=== PATIENT | female | born 1975 | race Hispanic/Latino ===

== ENCOUNTER → 2018-03-28 | Day surgery (SDC) | payer BC ==
[~2018-03-28] MED LIST: ASPIR 8181 MG PO; BUSPIRONE HCL5 MG PO; CYMBALTA30 MG PO; DICYCLOMINE HCL10 MG PO; DOCUSATE SODIU100 MG PO; FENTANYL CITRATE/PF 100MCG/2 ML INJ ONE; FETZIMA PO; GABAPEN; GABAPENTIN PO; HYDROXYCHLOROQ200 MG PO; HYDROXYZINE HCL25 MG PO; LINZESS PO; LORAZEPAM INJ 2 MG/ML VIAL INJ ONE; LORAZEPAM INJ 2 MG/ML VIAL IV ONE; LYRICA75 MG PO; MIDAZOLAM HCL 2 MG/2 ML VIAL ONE; MIRTAZAPINE15 MG PO; PANTOPRAZOLE SO40 MG PO; PROPOFOL IV EMULSION 10 MG/ML 50 ML VIAL ONE; TRAZODONE HCL50 MG PO; TRULANCE PO; TURMERIC1 GM PO; TYLENOL PO; VENLAFAXINE HCL75 MG PO; VIT D3 PO; [UNRECOGNIZED DRUG - OTHER] PO
--- OUTSIDE RECORDS SUMMARY | 2018-03-28 11:48 | XMS REPORT | Clinical Summary ---
Author Author [facility]esh [facility] Organization [facility] Address Unknown Phone Unavailable Care Team Providers Care Speed Belt Sander Name Role Phone Asked, Pcp PCP Unavailable Allergies Active Allergy Reactions Severity Noted Date Comments Iodine 08/18/2016 Metoclopramide 08/18/2016 Shellfish Derived 08/18/2016 Current Medications Prescription Sig. Disp. Refills Start End Date Status Date famotidine (PEPCID) 20 MG TK 1 T PO Q 12 H 0 08/12/20 Active tablet 16 levETIRAcetam (KEPPRA) TK 1 T PO BID 0 08/02/20 Active 500 MG tablet 16 traZODone (DESYREL) 50 MG Take 2 tablets by mouth 0 07/07/20 Active tablet nightly. 16 linaclotide (LINZESS) 290 Take 290 mcg by mouth Active mcg capsule every other day. gabapentin (NEURONTIN) Take 300 mg by mouth 3 Active 300 MG capsule (three) times a day. pantoprazole (PROTONIX) Take 40 mg by mouth Active 40 MG EC tablet daily. ibuprofen-famotidine Take 1 tablet by mouth Active 800-26.6 mg tablet daily as needed. venlafaxine XR Take 150 mg by mouth Active (EFFEXOR-XR) 150 MG 24 hr daily. capsule dicyclomine (BENTYL) 10 Take 10 mg by mouth 2 Active MG capsule (two) times a day. brexpiprazole 2 mg tablet Take 2 mg by mouth daily. Active topiramate (TOPAMAX) 25 Take 25 mg by mouth 2 Active MG tablet (two) times a day. Active Problems Problem Noted Date Fibromyalgia 09/02/2016 Elevated antinuclear antibody (DIMAS) level 09/02/2016 Syncope and collapse 09/02/2016 Weakness generalized 09/02/2016 Vitamin D deficiency 09/02/2016 Slurred speech 09/02/2016 Paresthesia 09/02/2016 Social History Tobacco Use Types Packs/Day Years Used Date Never Smoker Smokeless Tobacco: Never Used Alcohol Use Drinks/Week oz/Week Comments No Sex Assigned at Date Recorded Not on file Last Filed Vital Signs Not on file Plan of Treatment Health Maintenance Due Date Last Done Comments CERVICAL CANCER SCREENING 1998 INFLUENZA VACCINE 05/23/2018 Results Not on fileafter 03/27/2017 Insurance Payer Benefit Subscriber ID Type Phone Address Plan / Group BCBS BCBS xxxxxxxxxxxx PPO CHOICE PPO/INES NIEVES PPO GARETT MONTESINOS Third Self 1975 Home: [id number] [facility] [place] [address] Liability
--- NOTE | 2018-03-28 15:28 | Operative Report ---
DATE OF PROCEDURE: March 28, 2018 REFERRING PHYSICIAN: Dr. Cherelle Cornelius. PROCEDURE PERFORMED: Esophagogastroduodenoscopy with biopsies and esophageal dilatation. INDICATIONS FOR PROCEDURE: Dysphagia to solids. Heartburn indigestion. MEDICATION: Patient was done under MAC. Please see anesthesiologist's note. PROCEDURE: With the patient in the left lateral decubitus position, the flexible fiberoptic Olympus gastroscope was introduced into the esophagus under direct visualization without any difficulty. There was some patchy erythema noted in the distal esophagus. A mild stricture was noted at the GE junction that was dilated to a size 52-Arabic Tavares. The scope was then advanced with ease into the stomach, and some hyperplastic-appearing polyps were noted in the body. Some were partially excised with the cold biopsy forceps. The mucosa overlying the antrum revealed some patchy intense erythema and moderate edema, and biopsies were obtained and sent to stain for H. pylori. Pylorus appeared to be of normal contour and shape, was intubated with ease, and the scope was advanced all the way to the 2nd portion of the duodenum. The scope was then withdrawn slowly. Mucosa overlying the proximal 2nd portion and the duodenal bulb appeared to be within normal limits. The scope was then withdrawn back into the stomach and retroflexed, and the mucosa overlying the fundus and the cardia appeared to be within normal limits. The scope was then straightened out. The stomach was decompressed. The scope was subsequently withdrawn. Patient tolerated the procedure well. IMPRESSION: 1. Distal esophagitis. 2. Esophageal stricture at gastroesophageal junction dilated to size 52-Arabic Tavares. 3. Gastritis biopsied. Biopsies sent to stain for H. pylori. 4. Gastric polyps, body, some partially excised with the cold biopsy forceps. PLAN: Follow up histology. Continue Protonix 40 mg 1 p.o. a.c. b.i.d. Add Carafate 2 grams p.o. a.c. b.i.d. Job#: [id number] EV cc:CHERELLE CORNELIUS MD
== END | disposition home or self-care (01) ==
LOC: OR 11:45
PROVIDERS: ATTEND Internal Medicine Gastroenterology
DX: K22.2 Esophageal obstruction (principal); K31.7 Polyp of stomach and duodenum; K29.70 Gastritis, unspecified, without bleeding; K20.9 Esophagitis, unspecified; K59.00 Constipation, unspecified; K58.9 Irritable bowel syndrome, unspecified; M33.20 Polymyositis, organ involvement unspecified; M34.9 Systemic sclerosis, unspecified; M32.9 Systemic lupus erythematosus, unspecified; R03.0 Elevated blood-pressure reading, without diagnosis of hypertension; G62.9 Polyneuropathy, unspecified; M79.7 Fibromyalgia; R06.02 Shortness of breath; F41.9 Anxiety disorder, unspecified; F32.9 Major depressive disorder, single episode, unspecified; Z88.8 Allergy status to other drugs, medicaments and biological substances; Z91.041 Radiographic dye allergy status; Z79.82 Long term (current) use of aspirin; Z68.38 Body mass index [BMI] 38.0-38.9, adult
CPT/HCPCS: 43239; 43450; J2060; J2250

== ENCOUNTER → 2019-01-31 | Day surgery (SDC) | payer BC ==
[~2019-01-31] MED LIST changes: +BUPROPION XL150 MG PO; +DOXEPIN HCL25 MG PO; +HYOSCYAMINE SULFATE 0.5 MG/ML INJ ONE; -LORAZEPAM INJ 2 MG/ML VIAL INJ ONE; -LORAZEPAM INJ 2 MG/ML VIAL IV ONE; +METOPROLOL SUCC25 MG PO; +MILK THISTLE500 MG PO; +SUCRALFATE1 GM PO; +VIT B12 PO; +VIT E PO
--- OUTSIDE RECORDS SUMMARY | 2019-01-31 10:31 | XMS REPORT ---
Author Author [facility] Address Unknown Phone Unavailable Care Team Providers Care Squilgeer Name Role Phone Unavailable Unavailable Problems This patient has no known problems. Allergies, Adverse Reactions, Alerts This patient has no known allergies or adverse reactions. Medications This patient has no known medications.
--- OUTSIDE RECORDS SUMMARY | 2019-01-31 10:31 | XMS REPORT | Clinical Summary ---
Author Author Yogesh [facility] Organization [facility] Address Unknown Phone Unavailable Care Team Providers Care Truck Loader And Unloader Name Role Phone Asked, No Pcp PCP Unavailable Allergies Comments Active Allergy Reactions Severity Noted Date Iodine 08/18/2016 Metoclopramide 08/18/2016 Shellfish Derived 08/18/2016 Medications End Date Status Medication Sig Dispensed Refills Start Date Active famotidine (PEPCID) 20 MG TK 1 T PO Q 0 tablet 12 H 6 Active levETIRAcetam (KEPPRA) TK 1 T PO BID 0 500 MG tablet 6 Active traZODone (DESYREL) 50 MG Take 2 0 tablet tablets by 6 mouth nightly. Active linaclotide (LINZESS) 290 Take 290 mcg 0 mcg capsule by mouth every other day. Active gabapentin (NEURONTIN) Take 300 mg 0 300 MG capsule by mouth 3 (three) times a day. Active pantoprazole (PROTONIX) Take 40 mg by 0 40 MG EC tablet mouth daily. Active ibuprofen-famotidine Take 1 tablet 0 800-26.6 mg tablet by mouth daily as needed. Active venlafaxine XR Take 150 mg 0 (EFFEXOR-XR) 150 MG 24 hr by mouth capsule daily. Active dicyclomine (BENTYL) 10 Take 10 mg by 0 MG capsule mouth 2 (two) times a day. Active brexpiprazole 2 mg tablet Take 2 mg by 0 mouth daily. Active topiramate (TOPAMAX) 25 Take 25 mg by 0 MG tablet mouth 2 (two) times a day. Active Problems Problem Noted Date Fibromyalgia 09/02/2016 Elevated antinuclear antibody (DIMAS) level 09/02/2016 Syncope and collapse 09/02/2016 Weakness generalized 09/02/2016 Vitamin D deficiency 09/02/2016 Slurred speech 09/02/2016 Paresthesia 09/02/2016 Social History Date Tobacco Use Types Packs/Day Years Used Never Smoker Smokeless Tobacco: Never Used Alcohol Use Drinks/Week oz/Week Comments No Sex Assigned at Date Recorded Not on file Industry Job Start Date Occupation Not on file Not on file Not on file Travel End Travel History Travel Start No recent travel history available. Last Filed Vital Signs Not on file Plan of Treatment Health Maintenance Due Date Last Done Comments CERVICAL CANCER SCREENING 1998 INFLUENZA VACCINE 05/23/2019 Results Not on fileafter 01/30/2018 Insurance Payer Benefit Subscriber ID Type Phone Address Plan / Group BCBS BCBS xxxxxxxxxxxx PPO CHOICE PPO/INES NIEVES PPO Liability Advance Directives Patient has advance care planning documents on file. For more information, salvador rob contact: Yogesh Quiles [address] [place] [address]
[2019-01-31 14:35] VITALS: BP 120/75
--- NOTE | 2019-01-31 14:52 | Operative Report ---
DATE OF PROCEDURE: 01/31/2019 SURGEON: Javi Deleon MD PROCEDURES: Esophagogastroduodenoscopy with biopsies and esophageal dilatation and colonoscopy. INDICATIONS FOR EGD: Dysphagia to solids. INDICATIONS FOR COLONOSCOPY: Surveillance colonoscopy, personal history of colon polyp. Constipation. MEDICATIONS: The patient was done under MAC, please see anesthesiologist's note. PROCEDURE IN DETAIL: With the patient in left lateral decubitus position, flexible fiberoptic Olympus gastroscope was introduced into the esophagus under direct visualization without any difficulty. There was some patchy erythema noted in distal esophagus. A mild stricture was noted at the GE junction, it was dilated to size 52-Persian Tavares. The scope was then advanced with ease into the stomach. Mucosa overlying the antrum and the body revealed some patchy erythema and [id number] edema and biopsies were obtained and sent to stain for H pylori. The pylorus was of normal contour and shape, it was intubated with ease and the scope was advanced all the way to the second portion of the duodenum. Biopsies were obtained from the proximal second portion and the duodenal bulb to rule out sprue. The scope was then withdrawn back into the stomach and retroflexed and mucosa overlying the fundus and cardia appeared to be within normal limits. The scope was then straightened out, it was subsequently withdrawn. The patient tolerated the procedure well. IMPRESSION: 1. Mild distal esophagitis. 2. Esophagus dilated to size 52-Persian Tavares. 3. Gastritis, biopsied. Biopsies sent to stain for Helicobacter pylori. 4. Rule out sprue. PLAN: Follow up histology. Initiate Protonix 40 mg one p.o. a.c. b.i.d. PROCEDURE IN DETAIL: The patient was then turned around and after adequate lubrication of the anal canal, a flexible fiberoptic Olympus colonoscope was inserted into the rectum with ease and advanced all the way to the cecum. The scope was then withdrawn slowly and mucosa overlying the cecum, ascending, transverse, descending, and sigmoid grossly appeared to be within normal limits other than for diverticular disease. The rectum appeared to be within normal limits. The scope was then retroflexed into the distal rectum and small internal hemorrhoids were noted, none of which was actively bleeding. The scope was then straightened out, it was subsequently withdrawn. The patient tolerated the procedure well. IMPRESSION: 1. Diverticulosis. 2. Internal hemorrhoids, none actively bleeding. PLAN: Initiate high-fiber, low-fat diet. Initiate high-fiber supplement. The patient might benefit from a colonoscopy in 5 years. MD MEIR Ferreira/ADIN /[id number] cc: Cherelle Holley MD
== END | disposition home or self-care (01) ==
LOC: OR 10:29
PROVIDERS: ATTEND Internal Medicine Gastroenterology
DX: K22.2 Esophageal obstruction (principal); K29.50 Unspecified chronic gastritis without bleeding; K20.9 Esophagitis, unspecified; K21.9 Gastro-esophageal reflux disease without esophagitis; K58.9 Irritable bowel syndrome, unspecified; K57.30 Diverticulosis of large intestine without perforation or abscess without bleeding; K64.8 Other hemorrhoids; M32.9 Systemic lupus erythematosus, unspecified; M79.7 Fibromyalgia; F32.9 Major depressive disorder, single episode, unspecified; F41.9 Anxiety disorder, unspecified; Z88.8 Allergy status to other drugs, medicaments and biological substances; Z91.041 Radiographic dye allergy status; Z01.810 Encounter for preprocedural cardiovascular examination; Z79.82 Long term (current) use of aspirin
CPT/HCPCS: 43239; 43450; 45378; 93005; J1980; J2250; J2704

== ENCOUNTER → 2019-06-06 | Day surgery (SDC) | payer BC ==
[2019-06-04 11:07] LABS: BASOPHILS % 0.5 % (0.0-1.0); EOSINOPHILS # (AUTO) 0.1 (0.0-0.4); EOSINOPHILS % 1.7 % (0.0-6.0); HEMATOCRIT 41.7 % (34.2-44.1); HEMOGLOBIN 14.2 g/dL (12.0-16.0); LYMPHOCYTES # (AUTO) 2.5 (1.0-3.2); LYMPHOCYTES % 38.7 % (18.0-39.1); MEAN CORPUSCULAR HEMOGLOBIN 30.7 pg (28-32); MEAN CORPUSCULAR HGB CONC 34.1 g/dL (31-35); MEAN CORPUSCULAR VOLUME 90.1 fL (81-99); MONOCYTES # (AUTO) 0.4 (0.2-0.8); MONOCYTES % 6.4 % (4.4-11.3); NEUTROPHILS # (AUTO) 3.4 (2.1-6.9); NEUTROPHILS % 52.4 % (38.7-80.0); PLATELET COUNT 234 x10e3/uL (140-360); RED BLOOD COUNT 4.63 x10e6/uL (3.6-5.1); RED CELL DISTRIBUTION WIDTH 11.9 % (11.7-14.4)
[2019-06-04 11:17] LABS: ALANINE AMINOTRANSFERASE 25 IU/L (0-55); ALBUMIN 4.3 g/dL (3.5-5.0); ALBUMIN/GLOBULIN RATIO 1.3 (0.8-2.0); ALKALINE PHOSPHATASE 61 IU/L (40-150); ANION GAP 15.5 mmol/L (8-16); BLOOD UREA NITROGEN 10 mg/dL (7-26); BUN/CREATININE RATIO 12 (6-25); CALCIUM 9.6 mg/dL (8.4-10.2); CARBON DIOXIDE 25 mmol/L (22-29); CHLORIDE 102 mmol/L (98-107); CREATININE, SERUM 0.81 mg/dL (0.57-1.11); EST GLOMERULAR FILTRATION RATE > 60 ML/MIN (60-); GLUCOSE 93 mg/dL (74-118); POTASSIUM 4.5 mmol/L (3.5-5.1); SODIUM 138 mmol/L (136-145)
--- NOTE | 2019-06-04 12:05 | Diagnostic Imaging Report ---
EXAMINATION: CHEST 2 VIEWS INDICATION: Pre-operative COMPARISON: None FINDINGS: LINES/TUBES:None LUNGS:The lungs are well-inflated. No focal consolidation or pulmonary edema. PLEURA:No pleural effusion or pneumothorax. MEDIASTINUM:The cardiomediastinal silhouette appears normal in size and shape. BONES/SOFT TISSUES:No acute osseous injury. ABDOMEN:No free air under the diaphragm. IMPRESSION: No focal pneumonia or pulmonary edema. Signed by: Kuldeep Jenkins MD on 06/04/2019 12:02 PM
[~2019-06-06] MED LIST changes: +ACETAMINOPHEN 1000 MG/100 ML IV ONE; +BUPIVACAINE 0.25%/EPI 30ML SDV INJ ONE; +BUPIVACAINE/EPINEPHRINE 0.25% 10 ML SDV INJ ONE; +CEFAZOLIN SOD 1 GM/NS 50ML 100 ML IV ONE; +DEXAMETHASONE SOD PHOS INJ 4 MG/ML VIAL ONE; +ESTROGENS CONJUGATED VAGINAL CR 45 GM TUBE PV ONE; -HYOSCYAMINE SULFATE 0.5 MG/ML INJ ONE; +LIDOCAINE HCL 2% LOCAL INJ 5 ML SDV VIAL INJ ONE; +LORAZEPAM INJ 2 MG/ML VIAL ONE; +ONDANSETRON HCL INJ 2MG/ML 2ML 2 MG/ML VIAL ONE; +PROPOFOL IV EMULSION 10 MG/ML 20 ML VIAL ONE; -PROPOFOL IV EMULSION 10 MG/ML 50 ML VIAL ONE; +SEVOFLURANE INHAL SOLN 250 ML PEN BTL ONE
--- OUTSIDE RECORDS SUMMARY | 2019-06-06 09:28 | XMS REPORT | Clinical Summary ---
Author Author Yogesh [facility] Organization [facility] Address Unknown Phone Unavailable Care Team Providers Care Counterintelligence/Humint Specialist Name Role Phone Asked, No Pcp PCP [...] Health Maintenance Due Date Last Done Comments INFLUENZA VACCINE 05/23/2019 Results Not on fileafter 06/05/2018 Insurance Type Payer Benefit Subscriber ID Effective Phone Address Plan / Dates Group PPO BCBS BCBS xxxxxxxxxxxx 2008-P CHOICE resent PPO/INES NIEVES PPO Taylor Rubalcava Third Self 1975 [id number] [facility] [employer] [place] (Home) [place] [id number] Liability Advance Directives Patient has advance care planning documents on file. For more information, salvador rob contact: Yogesh Quiles [address] [place] [address]
--- NOTE | 2019-06-06 15:33 | Operative Report ---
PREOPERATIVE DIAGNOSIS: Genuine stress incontinence. POSTOPERATIVE DIAGNOSIS: Genuine stress incontinence. PROCEDURE: Transobturator tape. COMPLICATIONS: None. ESTIMATED BLOOD LOSS: 20 mL. PROCEDURE IN DETAIL: The patient was taken to the OR. General anesthesia was induced. She was prepped and draped in a normal sterile fashion, placed in dorsal lithotomy position with hyperflexion of the hip joints. Foss catheter was placed inside the bladder and UVJ junction was marked with an Allis clamp. A weighted speculum was placed inside the vagina and another Allis clamp was placed at the external urethral meatus. The subvaginal tissue anteriorly was between two Allis clamps, was injected with Marcaine with epinephrine 0.25%. Vaginal skin incision was made with a scalpel at the level of the mid urethra and subvaginal tissue dissected off the urethra using Metzenbaum scissors using push-spread technique towards the inferior pubic ramus. Entry points were made on each side of the pelvis at the level of the clitoris and with the scalpel the Obtryx trocar was then inserted inside the entry points felt with the finger and medial to the inferior pubic ramus and guided to the outside of the wound where the TOT tape was threaded on the trocar and the trocar was withdrawn. The same was repeated on the other side and the tape was laid down flat at the level of the mid urethra. Cystoscopy showed normal bladder and urethra. The TOT cover was removed and the vagina was closed. Vaginal skin was approximated with Vicryl 2-0. The excess TOT tape was excised at the entry points and the skin was approximated using Dermabond. The patient tolerated the procedure well. Lap, sponge and needle count was correct x2 at the end of the procedure. Elva Green MD DD/ADIN /[id number]
[2019-06-06 16:20] VITALS: BP 114/71
== END | disposition home or self-care (01) ==
LOC: OR 09:25
PROVIDERS: ATTEND Obstetrics & Gynecology
DX: N39.3 Stress incontinence (female) (male) (principal); M32.9 Systemic lupus erythematosus, unspecified; M79.7 Fibromyalgia; I45.10 Unspecified right bundle-branch block; K21.9 Gastro-esophageal reflux disease without esophagitis; K28.9 Gastrojejunal ulcer, unspecified as acute or chronic, without hemorrhage or perforation; R42 Dizziness and giddiness; F41.0 Panic disorder [episodic paroxysmal anxiety]; Z88.8 Allergy status to other drugs, medicaments and biological substances; Z91.041 Radiographic dye allergy status; Z79.82 Long term (current) use of aspirin
CPT/HCPCS: 36415; 57288; 71046; 80053; 84702; 85025; 93005; C1781; J0131; J0690; J1100; J2001; J2060; J2250; J2405; J2704; J3010

== ENCOUNTER → 2021-02-06 | Day surgery (SDC) | payer BC ==
[2021-02-03 10:01] LABS: BASOPHILS % 0.2 % (0.0-1.0); EOSINOPHILS % 0.6 % (0.0-6.0); HEMOGLOBIN 12.4 g/dL (12.0-16.0); LYMPHOCYTES # (AUTO) 2.4 (1.0-3.2); LYMPHOCYTES % 45.2 % (18.0-39.1); MEAN CORPUSCULAR HEMOGLOBIN 30.8 pg (28-32); MEAN CORPUSCULAR HGB CONC 33.5 g/dL (31-35); MONOCYTES # (AUTO) 0.4 (0.2-0.8); MONOCYTES % 7.3 % (4.4-11.3); NEUTROPHILS # (AUTO) 2.5 (2.1-6.9); NEUTROPHILS % 46.5 % (38.7-80.0); PLATELET COUNT 318 x10e3/uL (140-360); RED BLOOD COUNT 4.02 x10e6/uL (3.6-5.1); RED CELL DISTRIBUTION WIDTH 13.6 % (11.7-14.4)
[~2021-02-06] MED LIST changes: -ACETAMINOPHEN 1000 MG/100 ML IV ONE; -BUPIVACAINE 0.25%/EPI 30ML SDV INJ ONE; -BUPIVACAINE/EPINEPHRINE 0.25% 10 ML SDV INJ ONE; -CEFAZOLIN SOD 1 GM/NS 50ML 100 ML IV ONE; -DEXAMETHASONE SOD PHOS INJ 4 MG/ML VIAL ONE; -ESTROGENS CONJUGATED VAGINAL CR 45 GM TUBE PV ONE; -LIDOCAINE HCL 2% LOCAL INJ 5 ML SDV VIAL INJ ONE; -LORAZEPAM INJ 2 MG/ML VIAL ONE; -MIDAZOLAM HCL 2 MG/2 ML VIAL ONE; +MIDAZOLAM HCL 5 MG/ML VIAL ONE; -ONDANSETRON HCL INJ 2MG/ML 2ML 2 MG/ML VIAL ONE; -SEVOFLURANE INHAL SOLN 250 ML PEN BTL ONE; +VITAMIN B2 PO; +VITAMIN D310 MCG PO
== END | disposition home or self-care (01) ==
LOC: OR 06:44
PROVIDERS: ATTEND Internal Medicine Gastroenterology
DX: K29.70 Gastritis, unspecified, without bleeding (principal); K31.7 Polyp of stomach and duodenum; K20.90 Esophagitis, unspecified without bleeding; K59.00 Constipation, unspecified; K58.1 Irritable bowel syndrome with constipation; B37.9 Candidiasis, unspecified; M32.9 Systemic lupus erythematosus, unspecified; I10 Essential (primary) hypertension; F41.9 Anxiety disorder, unspecified; Z91.041 Radiographic dye allergy status; Z88.8 Allergy status to other drugs, medicaments and biological substances; Z01.810 Encounter for preprocedural cardiovascular examination; Z01.812 Encounter for preprocedural laboratory examination; Z20.822 Contact with and (suspected) exposure to COVID-19; Z79.82 Long term (current) use of aspirin; Z68.36 Body mass index [BMI] 36.0-36.9, adult
CPT/HCPCS: 36415; 43239; 85025; 93005; J2704; U0002; J2250; J3010

== ENCOUNTER 2023-03-28 09:23 | Emergency (ER) | payer BC ==
[~2023-03-28] VITALS: Ht 167.6 cm; Wt 107.0 kg
[~2023-03-28 09:23] MED LIST changes: -FENTANYL CITRATE/PF 100MCG/2 ML INJ ONE; -MIDAZOLAM HCL 5 MG/ML VIAL ONE; -PROPOFOL IV EMULSION 10 MG/ML 20 ML VIAL ONE
[2023-03-28] MEDS ORDERED: FAMOTIDINE 20 MG/2 ML VIAL IV STA (10:00)
[2023-03-28] MEDS ORDERED: ONDANSETRON HCL INJ 2MG/ML 2ML 2 MG/ML VIAL IV STA (10:00)
[2023-03-28 10:19] LABS: BASOPHILS % 0.3 % (0.0-1.0); EOSINOPHILS % 0.7 % (0.0-6.0); HEMATOCRIT 46.4 % (34.2-44.1); HEMOGLOBIN 15.9 g/dL (12.0-16.0); LYMPHOCYTES # (AUTO) 1.7 (1.0-3.2); LYMPHOCYTES % 29.6 % (18.0-39.1); MEAN CORPUSCULAR HEMOGLOBIN 31.2 pg (28-32); MEAN CORPUSCULAR HGB CONC 34.3 g/dL (31-35); MONOCYTES # (AUTO) 0.4 (0.2-0.8); MONOCYTES % 7.3 % (4.4-11.3); NEUTROPHILS # (AUTO) 3.6 (2.1-6.9); NEUTROPHILS % 61.1 % (38.7-80.0); PLATELET COUNT 282 x10e3/uL (140-360); RED CELL DISTRIBUTION WIDTH 12.6 % (11.7-14.4)
[2023-03-28 10:28] LABS: ALANINE AMINOTRANSFERASE 27 IU/L (0-55); ALBUMIN 4.6 g/dL (3.5-5.0); ALBUMIN/GLOBULIN RATIO 1.2 (0.8-2.0); ALKALINE PHOSPHATASE 59 IU/L (40-150); BLOOD UREA NITROGEN 6 mg/dL (7-26); BUN/CREATININE RATIO 7 (6-25); CALCIUM 9.6 mg/dL (8.4-10.2); CARBON DIOXIDE 25 mmol/L (22-29); CHLORIDE 101 mmol/L (98-107); CREATINE KINASE 49 IU/L (29-168); CREATININE, SERUM 0.88 mg/dL (0.57-1.11); GLUCOSE 89 mg/dL (74-118); LIPASE 28 U/L (8-78); SODIUM 137 mmol/L (136-145)
[2023-03-28] MEDS ORDERED: SODIUM CHLORIDE FLUSH 10 ML SYR IV PRN (10:45)
[2023-03-28] MEDS ORDERED: ONDANSETRON ODT4 MG PO (12:37)
[2023-03-28 12:58] LABS: CLARITY,URINE SL CLOUDY (CLEAR); COLOR,URINE YELLOW (YELLOW); KETONES,URINE NEGATIVE (NEGATIVE); LEUKOCYTE ESTERASE ,URINE TRACE (NEGATIVE); NITRITE,URINE POSITIVE (NEGATIVE); PROTEIN,URINE DIPSTICK NEGATIVE (NEGATIVE); URINE UROBILINOGEN 0.2 mg/dL (0.2 - 1)
[2023-03-28 13:05] LABS: BACTERIA,URINE MANY /HPF; EPITHELIAL CELLS,URINE MODERATE /LPF; RBC,URINE 0-5 /HPF (0-5); WBC,URINE (MAN) 0-5 /HPF (0-5)
[2023-03-28 13:15] VITALS: O2SAT 98
== END 2023-03-28 13:30 | disposition home or self-care (01) ==
LOC: ER 09:31
DX: R10.30 Lower abdominal pain, unspecified (principal); N83.202 Unspecified ovarian cyst, left side; K57.90 Diverticulosis of intestine, part unspecified, without perforation or abscess without bleeding; M32.9 Systemic lupus erythematosus, unspecified; M79.7 Fibromyalgia
CPT/HCPCS: 36415; 74176; 80053; 81001; 81025; 82550; 83690; 84484; 85025; 99284; J2405

== ENCOUNTER → 2023-04-24 | Day surgery (SDC) | payer BC ==
[~2023-04-24] MED LIST changes: +ALBUTEROL SULFATE HFA 8GM INHALATION AEROSOL INH ONE; +DEXAMETHASONE SOD PHOS INJ 4 MG/ML SDV ONE; +FENTANYL CITRATE/PF 100MCG/2 ML INJ ONE; +GLYCOPYRROLATE INJ 0.2 MG/ML VIAL ONE; +HYOSCYAMINE SULFATE 0.5 MG/ML INJ ONE; +KETAMINE 50MG/5ML SYR ONE; +LACTATED RINGER'S 1,000 ML ONE; +LIDOCAINE HCL 2% LOCAL INJ 5 ML SDV VIAL INJ ONE; +MAGNESIUM OXID400 MG PO; +METHOTREXATE2.5 MG PO; +MIDAZOLAM HCL 2 MG/2 ML VIAL ONE; +ONDANSETRON HCL INJ 2MG/ML 2ML 2 MG/ML VIAL ONE; +ONDANSETRON ODT4 MG PO; +POVIDONE IODINE 0.05% 0.05 % ML PO ONE; +PREDNISONE5 MG PO; +PROBIOTIC & AC1 EACH PO; +PROPOFOL IV EMULSION 10 MG/ML 20 ML VIAL ONE; +PROPOFOL IV EMULSION 50 ML IV ONE; +VITAMIN B-121000 MCG PO; +ZALEPLON5 MG PO
[2023-04-24 10:17] VITALS: TEMP 97.4
[2023-04-24 10:40] VITALS: BP 138/88; PULSE 83; RESP 18; O2SAT 97
[2023-04-27 16:11] LABS: ENDOMYSIAL ANTIBODIES, IGA Negative (Negative)
== END | disposition home or self-care (01) ==
LOC: OR 07:00
PROVIDERS: ATTEND Internal Medicine Gastroenterology
DX: K29.70 Gastritis, unspecified, without bleeding (principal); D12.3 Benign neoplasm of transverse colon; K31.7 Polyp of stomach and duodenum; K20.90 Esophagitis, unspecified without bleeding; K44.9 Diaphragmatic hernia without obstruction or gangrene; K63.89 Other specified diseases of intestine; K57.30 Diverticulosis of large intestine without perforation or abscess without bleeding; K59.09 Other constipation; K21.9 Gastro-esophageal reflux disease without esophagitis; K58.9 Irritable bowel syndrome, unspecified; R19.15 Other abnormal bowel sounds; K64.8 Other hemorrhoids; Z71.3 Dietary counseling and surveillance; M06.9 Rheumatoid arthritis, unspecified; R00.2 Palpitations; M32.9 Systemic lupus erythematosus, unspecified; Z71.89 Other specified counseling; Z88.8 Allergy status to other drugs, medicaments and biological substances; Z91.041 Radiographic dye allergy status; Z79.82 Long term (current) use of aspirin; Z79.899 Other long term (current) drug therapy; Z68.38 Body mass index [BMI] 38.0-38.9, adult
CPT/HCPCS: 43239; 45380; 82784; 83516; 86256; C9113; J1100; J1980; J2001; J2250; J2405; J2704 ×2; J3010; J7121; 45378; 45384

== ENCOUNTER → 2025-06-06 | Outpatient (REF) | payer BC ==
[~2025-06-06] MED LIST changes: -ALBUTEROL SULFATE HFA 8GM INHALATION AEROSOL INH ONE; -DEXAMETHASONE SOD PHOS INJ 4 MG/ML SDV ONE; -FENTANYL CITRATE/PF 100MCG/2 ML INJ ONE; -GLYCOPYRROLATE INJ 0.2 MG/ML VIAL ONE; -HYOSCYAMINE SULFATE 0.5 MG/ML INJ ONE; -KETAMINE 50MG/5ML SYR ONE; -LACTATED RINGER'S 1,000 ML ONE; -LIDOCAINE HCL 2% LOCAL INJ 5 ML SDV VIAL INJ ONE; -MIDAZOLAM HCL 2 MG/2 ML VIAL ONE; -ONDANSETRON HCL INJ 2MG/ML 2ML 2 MG/ML VIAL ONE; -POVIDONE IODINE 0.05% 0.05 % ML PO ONE; -PROPOFOL IV EMULSION 10 MG/ML 20 ML VIAL ONE; -PROPOFOL IV EMULSION 50 ML IV ONE
== END ==
LOC: RAD 11:11
PROVIDERS: ATTEND Internal Medicine Gastroenterology
DX: K58.1 Irritable bowel syndrome with constipation (principal)
CPT/HCPCS: 74018

== ENCOUNTER 2025-06-25 17:52 | Emergency (ER) | payer BC ==
[~2025-06-25] VITALS: Ht 167.6 cm; Wt 107.0 kg
[2025-06-25 18:01] VITALS: PULSE 87; RESP 18; TEMP 98.4
[2025-06-25 18:50] LABS: BASOPHILS % 0.3 % (0.0-1.0); EOSINOPHILS % 1.0 % (0.0-6.0); LYMPHOCYTES % 29.1 % (18.0-39.1); MONOCYTES % 9.2 % (4.4-11.3); NEUTROPHILS % 60.1 % (38.7-80.0); RED CELL DISTRIBUTION WIDTH 12.2 % (11.7-14.4)
[2025-06-25 18:52] LABS: LEUKOCYTE ESTERASE ,URINE NEGATIVE (NEGATIVE); PROTEIN,URINE DIPSTICK NEGATIVE (NEGATIVE)
[2025-06-25 18:53] LABS: PREGNANCY TEST, URINE NEGATIVE (NEGATIVE); URINE UROBILINOGEN 0.2 mg/dL (0.2 - 1)
[2025-06-25 18:54] LABS: AMPHETAMINES SCREEN,URINE NEGATIVE (NEGATIVE); CANNABINOIDS SCREEN,URINE POSITIVE (NEGATIVE); COCAINE SCREEN,URINE NEGATIVE (NEGATIVE); METHADONE SCREEN, URINE NEGATIVE (NEGATIVE); OPIATES SCREEN,URINE NEGATIVE (NEGATIVE)
[2025-06-25 18:59] LABS: EPITHELIAL CELLS,URINE FEW /LPF; WBC,URINE (MAN) 0-5 /HPF (0-5)
[2025-06-25 19:15] LABS: EST GLOMERULAR FILTRATION RATE 86.0 ML/MIN (>=60)
[2025-06-25] MEDS: ONDANSETRON HCL INJ 2MG/ML 2ML 2 MG/ML VIAL IV STA (19:27)
[2025-06-25] MEDS: SODIUM CHLORIDE 0.9% 1000ML 1,000 ML IV STA (19:27)
[2025-06-25] MEDS ORDERED: Morphine 4mg INJECTION 4 MG/ML INJ IV STA (21:57)
[2025-06-25] MEDS ORDERED: ONDANSETRON HCL INJ 2MG/ML 2ML 2 MG/ML VIAL IV STA (21:57)
[2025-06-25 22:25] VITALS: BP 120/82; PULSE 85; RESP 14; TEMP 98.4; O2SAT 99
[2025-06-25] MEDS: BISACODYL 5 MG TAB EC PO STA (22:25)
== END 2025-06-25 22:28 | disposition home or self-care (01) ==
LOC: ER 17:56
DX: R10.33 Periumbilical pain (principal); R11.2 Nausea with vomiting, unspecified; K59.00 Constipation, unspecified; M32.9 Systemic lupus erythematosus, unspecified; M79.7 Fibromyalgia
CPT/HCPCS: 36415; 74176; 80053; 80307; 81001; 81025; 83690; 85025; 99284; J2405; J7030